=== PATIENT | female | born 1950 | race Caucasian/White ===

== ENCOUNTER 2017-11-01 15:45 | Emergency (ER) | payer MEDICAID, MEDICARE ==
[~2017-11-01] VITALS: Ht 167.6 cm; Wt 56.7 kg
[2017-11-01] MEDS ORDERED: HYDROcodone-ACET 10/325MG TAB PO ONE (19:15)
[2017-11-01 20:00] VITALS: BP 142/76
== END 2017-11-01 21:00 | disposition home or self-care (01) ==
LOC: ER 15:51
DX: S52.502A Unspecified fracture of the lower end of left radius, initial encounter for closed fracture (principal); W22.8XXA Striking against or struck by other objects, initial encounter; Y93.89 Activity, other specified; Y99.8 Other external cause status; Y92.89 Other specified places as the place of occurrence of the external cause
CPT/HCPCS: 29125; 73090; 73110